=== PATIENT | female | born 2000 | race Two or more races ===

== ENCOUNTER 2021-06-09 22:44 | Emergency (ER) | payer OTHER ==
[2021-06-09 22:49] VITALS: TEMP 98; BMI 32.5
[2021-06-09] MEDS ORDERED: DEXAMETHASONE SOD PHOSPHATE 10 MG/1 ML VIAL IVPUSH ONE (22:55)
[2021-06-09] MEDS ORDERED: FAMOTIDINE 20 MG/50 ML IVPB 20 MG/50 ML MG IVPB ONE (22:55)
[2021-06-09] MEDS ORDERED: EPINEPHrine 1:1,000 1,000 MCG/ML ML SQ ONE (23:05)
[2021-06-09] MEDS: ALBUTEROL SO4 2.5/IPRATROPIUM 0.5 INH SOL 3 ML VIAL.NEB. NEB SCH ×3 (23:05→23:50)
[2021-06-10 00:37] VITALS: BP 112/63
[2021-06-10 04:16] VITALS: PULSE 90
== END 2021-06-10 04:20 ==
LOC: JER 22:44
PROC: 3E0F7GC Introduction of Other Therapeutic Substance into Respiratory Tract, Via Natural or Artificial Opening (ICD-10-PCS; principal; 2021-06-09)
PROC: 3E033GC Introduction of Other Therapeutic Substance into Peripheral Vein, Percutaneous Approach (ICD-10-PCS; 2021-06-09)
PROC: 3E033GC Introduction of Other Therapeutic Substance into Peripheral Vein, Percutaneous Approach (ICD-10-PCS; 2021-06-09)
DX: T78.40XA Allergy, unspecified, initial encounter (principal)
CPT/HCPCS: 99284-25; J1100

== ENCOUNTER 2021-08-06 20:22 | Emergency (ER) | payer OTHER ==
[2021-08-06 20:38] VITALS: BP 102/63; PULSE 65; TEMP 98.2; BMI 29.2
== END 2021-08-06 22:19 | disposition home or self-care (01) ==
LOC: JER 20:22
DX: S06.0X0A Concussion without loss of consciousness, initial encounter (principal); W50.0XXA Accidental hit or strike by another person, initial encounter; Y93.61 Activity, american tackle football
CPT/HCPCS: 70450-TC; 99284-25

== ENCOUNTER 2021-11-29 02:26 | Emergency (ER) | payer OTHER | END 2021-11-29 06:39 | disposition home or self-care (01) | LOC: JER 02:26 | DX: R51.9 Headache, unspecified (principal); W01.0XXA Fall on same level from slipping, tripping and stumbling without subsequent striking against object, initial encounter | CPT/HCPCS: 70450-TC; 72125-TC; 99284-25 ==